=== PATIENT | male | born 1965 | race African-American/Black ===

== ENCOUNTER 2016-11-24 12:05 | Emergency (ER) | payer MEDICARE, MEDICAID ==
[2016-11-24] MEDS ORDERED: Lidocaine Viscous Sol 2% 15 ml UD Cup ONE (13:34)
== END 2016-11-24 14:44 | disposition home or self-care (01) ==
LOC: ERS 12:05
DX: K04.7 Periapical abscess without sinus (principal); I10 Essential (primary) hypertension; Z86.73 Personal history of transient ischemic attack (TIA), and cerebral infarction without residual deficits
CPT/HCPCS: 99283

== ENCOUNTER 2018-03-03 09:32 | Emergency (ER) | payer MEDICAID, MEDICARE | END 2018-03-03 10:47 | disposition home or self-care (01) | LOC: ERS 09:32 | DX: Z04.1 Encounter for examination and observation following transport accident (principal); E11.649 Type 2 diabetes mellitus with hypoglycemia without coma; E78.5 Hyperlipidemia, unspecified; I10 Essential (primary) hypertension; Z86.73 Personal history of transient ischemic attack (TIA), and cerebral infarction without residual deficits; F17.210 Nicotine dependence, cigarettes, uncomplicated; V49.9XXA Car occupant (driver) (passenger) injured in unspecified traffic accident, initial encounter | CPT/HCPCS: 36416; 99283 ==